=== PATIENT | female | born 1980 | race Caucasian/White ===

== ENCOUNTER 2017-03-13 01:06 | Emergency (ER) | payer OTHER ==
[2017-03-13] MEDS ORDERED: Albuterol/Ipratropium 3.0-0.5 MG/3 ML Neb Soln NEB ONE (01:13)
--- NOTE | 2017-03-13 01:19 | EDM.PDOC ---
ED HPI GENERAL MEDICAL PROBLEM - General Chief Complaint: Respiratory Problem Stated Complaint: CHEST COLD, DIFFICULTY CATCHING BREATH Time Seen by Provider: 03/13/17 01:15 Source of Information: Reports: Patient History Limitations: Reports: No Limitations - History of Present Illness INITIAL COMMENTS - FREE TEXT/NARRATIVE: c/o few days h/o SOB when walks around. gives h/o P.E was on anticoag' denies h/ o WI/CHF, no asthma/COPD. decided to come in tonight because not getting better. - Related Data Allergies Allergy/AdvReac Type Severity Reaction Status Date / Time No Known Allergies Allergy Verified 03/13/17 01:14 Home Meds: Home Meds . [No Known Home Meds] 03/13/17 [History] ED ROS GENERAL - Review of Systems Review Of Systems: ROS reveals no pertinent complaints other than HPI. ED EXAM, GENERAL - Physical Exam Exam: See Below Exam Limited By: No Limitations General Appearance: Alert, WD/WN, Anxious, Mild Distress Ears: Hearing Grossly Normal Throat/Mouth: Normal Voice, No Airway Compromise Head: Atraumatic Neck: Non-Tender, Full Range of Motion Respiratory/Chest: No Respiratory Distress, No Accessory Muscle Use, Rhonchi. No: Decreased Breath Sounds Cardiovascular: Regular Rate, Rhythm GI/Abdominal: Soft, Non-Tender Neurological: Alert, Oriented, Normal Cognition, Normal Gait, No Motor/Sensory Deficits Psychiatric: Anxious Skin Exam: Warm, Dry, Normal Color Lymphatic: No Adenopathy Course - Vital Signs Last Recorded V/S: Last Vital Signs Temp 36.2 C 03/13/17 01:10 Pulse 108 H 03/13/17 01:42 Resp 20 03/13/17 01:42 BP 139/85 03/13/17 01:42 Pulse Ox 95 03/13/17 01:42 - Orders/Labs/Meds Orders: Active Orders 24 hr Category Date Time Status EKG 12 Lead [EKG Documentation Completion] [RC] STAT Care 03/13/17 01:57 Active RT Aerosol Therapy [RC] ASDIRECTED Care 03/13/17 01:13 Active CULTURE BLOOD [BC] Stat Lab 03/13/17 01:20 Received INR,PT,PROTHROMBIN TIME [COAG] Stat Lab 03/13/17 02:08 Ordered PTT,PARTIAL THROMBOPLSTIN TIME [COAG] Stat Lab 03/13/17 02:08 Ordered Heparin Sodium Med 03/13/17 02:22 Once 5,000 units IVPUSH ONETIME ONE Labs: Laboratory Tests 03/13/17 03/13/17 03/13/17 Range/Units 01:20 01:20 01:20 WBC 13.1 H (5.0-10.0) 10^3/uL RBC 3.92 L (4.2-5.4) 10^6/uL Hgb 10.7 L (12.0-16.0) g/dL Hct 36.1 L (37.0-47.0) % MCV 92.1 (80-100) fL MCH 27.3 (27.0-34.0) pg MCHC 29.6 L (33.0-35.0) g/dL Plt Count 305 (150-450) 10^3/uL Neut % (Auto) 72.0 (42.2-75.2) % Lymph % (Auto) 17.2 L (20.5-50.1) % Cloud % (Auto) 8.6 H (2-8) % Eos % (Auto) 1.8 (1.0-3.0) % Baso % (Auto) 0.4 (0.0-1.0) % Add Manual Diff Yes Neutrophils % (Manual) 73 (42-75) % Lymphocytes % (Manual) 18 L (20-50) % Monocytes % (Manual) 8 (2-8) % Eosinophils % (Manual) 1 (1-3) % D-Dimer, Quantitative 3120 H (0-400) ng/mL Sodium 139 (135-145) mmol/L Potassium 2.9 L (3.6-5.0) mmol/L Chloride 100 L (101-111) mmol/L Carbon Dioxide 25.0 (21.0-31.0) mmol/L Anion Gap 16.9 BUN 6 L (7-18) mg/dL Creatinine 0.7 (0.6-1.3) mg/dL Est Cr Clr Drug Dosing 111.12 mL/min Estimated GFR (MDRD) > 60 BUN/Creatinine Ratio 8.57 Glucose 127 H (74-105) mg/dL Lactic Acid (0.5-2.2) mmol/L Calcium 9.3 (8.4-10.2) mg/dl Total Bilirubin 0.6 (0.2-1.0) mg/dL AST 26 (10-42) IU/L ALT 15 (10-60) IU/L Alkaline Phosphatase 87 (42-121) IU/L Troponin I 0.04 H* (0.00-0.02) ng/ml Total Protein 7.6 (6.7-8.2) g/dl Albumin 3.5 (3.2-5.5) g/dl Globulin 4.1 Albumin/Globulin Ratio 0.85 03/13/ Range/Units 01:20 WBC (5.0-10.0) 10^3/uL RBC (4.2-5.4) 10^6/uL Hgb (12.0-16.0) g/dL Hct (37.0-47.0) % MCV (80-100) fL MCH (27.0-34.0) pg MCHC (33.0-35.0) g/dL Plt Count (150-450) 10^3/uL Neut % (Auto) (42.2-75.2) % Lymph % (Auto) (20.5-50.1) % Cloud % (Auto) (2-8) % Eos % (Auto) (1.0-3.0) % Baso % (Auto) (0.0-1.0) % Add Manual Diff Neutrophils % (Manual) (42-75) % Lymphocytes % (Manual) (20-50) % Monocytes % (Manual) (2-8) % Eosinophils % (Manual) (1-3) % D-Dimer, Quantitative (0-400) ng/mL Sodium (135-145) mmol/L Potassium (3.6-5.0) mmol/L Chloride (101-111) mmol/L Carbon Dioxide (21.0-31.0) mmol/L Anion Gap BUN (7-18) mg/dL Creatinine (0.6-1.3) mg/dL Est Cr Clr Drug Dosing mL/min Estimated GFR (MDRD) BUN/Creatinine Ratio Glucose (74-105) mg/dL Lactic Acid 1.8 (0.5-2.2) mmol/L Calcium (8.4-10.2) mg/dl Total Bilirubin (0.2-1.0) mg/dL AST (10-42) IU/L ALT (10-60) IU/L Alkaline Phosphatase (42-121) IU/L Troponin I (0.00-0.02) ng/ml Total Protein (6.7-8.2) g/dl Albumin (3.2-5.5) g/dl Globulin Albumin/Globulin Ratio Meds: Medications Discontinued Medications Generic Name Dose Route Start Last Admin Trade Name Alfonsoq PRN Reason Stop Dose Admin Albuterol/Ipratropium 3 ml 03/13/17 01:13 03/13/17 01:23 Duoneb 3.0-0.5 Mg/3 Ml NEB 03/13/17 01:14 3 ml ONETIME ONE Administration - Re-Assessments/Exams Free Text/Narrative Re-Assessment/Exam: 03/13/17 02:28 results discussed with pt and case discussed with Dr Vargas @ who kindly accepted pt. Departure - Departure Time of Disposition: 02:29 Disposition: DC/Tfer to Acute Hospital 02 Condition: Good Clinical Impression: ORTIZ (dyspnea on exertion), Elevated d-dimer, Elevated troponin I level, Cardiac ischemia, Hypoxemia Pneumonia Qualifiers: Pneumonia type: due to unspecified organism Laterality: right Lung location: upper lobe of lung Qualified Code(s): J18.1 - Lobar pneumonia, unspecified organism - Discharge Information Forms: Interfacility Transfer EMTALA - My Orders Last 24 Hours: My Active Orders 03/13/17 01:13 RT Aerosol Therapy [RC] ASDIRECTED 03/13/17 01:20 CULTURE BLOOD [BC] Stat 03/13/17 01:57 EKG 12 Lead [EKG Documentation Completion] [RC] STAT 03/13/17 02:08 INR,PT,PROTHROMBIN TIME [COAG] Stat PTT,PARTIAL THROMBOPLSTIN TIME [COAG] Stat 03/13/17 02:22 Heparin Sodium 5,000 units IVPUSH ONETIME ONE - Assessment/Plan Last 24 Hours: My Active Orders 03/13/17 01:13 RT Aerosol Therapy [RC] ASDIRECTED 03/13/17 01:20 CULTURE BLOOD [BC] Stat 03/13/17 01:57 EKG 12 Lead [EKG Documentation Completion] [RC] STAT 03/13/17 02:08 INR,PT,PROTHROMBIN TIME [COAG] Stat PTT,PARTIAL THROMBOPLSTIN TIME [COAG] Stat 03/13/17 02:22 Heparin Sodium 5,000 units IVPUSH ONETIME ONE
[2017-03-13 01:49] LABS: CHLORIDE,CL 100 mmol/L (101-111); SODIUM,NA 139 mmol/L (135-145)
[2017-03-13] MEDS ORDERED: Heparin Sodium 5,000 Units/ML Vial IVPUSH ONE (02:22)
[2017-03-13] MEDS ORDERED: Heparin Sodium/D5W 25,000 UNITS/500 ML BAG IV SCH (02:45)
--- NOTE | 2017-04-22 15:48 | EKG ---
03/13/2017 - KIRAN MORENO - This is a standard 12-lead EKG, showing normal sinus rhythm with tachycardia. Ventricular rate 107 beats per minute. Prolonged QT interval. Normal QT duration and WI interval. Normal axis. No acute ST-T changes. [facility] /[id number]
== END 2017-03-13 03:10 ==
LOC: DL.ED 01:06
DX: J18.9 Pneumonia, unspecified organism (principal); I25.9 Chronic ischemic heart disease, unspecified; R09.02 Hypoxemia; R79.1 Abnormal coagulation profile; R79.89 Other specified abnormal findings of blood chemistry
CPT/HCPCS: 36415; 71010; 80053; 83605; 84484; 85025; 85379; 85610; 85730; 87040; 93005; 94640; 96365; 96376; 99285; J1644; 87077; 87186